=== PATIENT | female | born 1985 | race Caucasian/White ===

== ENCOUNTER 2018-01-04 10:22 | Outpatient (CLI) | payer BC, OTHER ==
[~2018-01-04] VITALS: Ht 157.5 cm; Wt 70.8 kg
[~2018-01-04 10:22] MED LIST: DCS100C PO; DOCU100C37 PO; HYDR-3720 PO; HYDR-89 PO; IBP800T PO; IBUP-1780 PO; MULT-963 PO; OCP; ONDA4TAB11 PO; TRAM-42 PO
[2018-01-04] MEDS ORDERED: MONT10TA24 PO (10:36)
[2018-01-04] MEDS ORDERED: ALOS0.5T2 PO (10:36)
[2018-01-04] MEDS ORDERED: CETI10TA20 PO (10:36)
[2018-01-04] MEDS ORDERED: BCP PO (10:36)
[2018-01-04 10:39] VITALS: BP 141/91
[2018-01-04 11:05] LABS: BASOPHILS % (AUTO) 0 % (0-10); EOSINOPHILS # (AUTO) 0.1 10^3/uL (0.0-0.3); EOSINOPHILS % (AUTO) 1 % (0-10); HEMATOCRIT 40 % (35-52); HEMOGLOBIN 13.6 G/DL (11.5-16.0); LYMPHOCYTES # (AUTO) 1.6 X 10^3 (1.0-4.0); LYMPHOCYTES % (AUTO) 20 % (12-44); MEAN CORPUSCULAR HEMOGLOBIN 29 PG (25-34); MEAN CORPUSCULAR HGB CONC 34 G/DL (32-36); MEAN CORPUSCULAR VOLUME 85 FL (80-99); MEAN PLATELET VOLUME 11.4 FL (7.4-10.4); MONOCYTES # (AUTO) 0.4 X 10^3 (0.0-1.0); MONOCYTES % (AUTO) 5 % (0-12); NEUTROPHILS # (AUTO) 5.7 X 10^3 (1.8-7.8); NEUTROPHILS % (AUTO) 73 % (42-75); PLATELET COUNT 293 10^3/uL (130-400); RED BLOOD COUNT 4.72 10^6/uL (4.35-5.85); RED CELL DISTRIBUTION WIDTH 13.5 % (10.0-14.5); WHITE BLOOD COUNT 7.7 10^3/uL (4.3-11.0)
[2018-01-05] MEDS ORDERED: IBUP-1780 PO (12:16)
[2018-01-05] MEDS ORDERED: OXYC-471 PO (12:16)
[2018-01-05] MEDS ORDERED: DOCU100C37 PO (12:16)
[2018-01-06] MEDS ORDERED: ALPR0.254 PO (07:05)
[2018-01-06] MEDS ORDERED: BO30SU PR (07:05)
== END 2018-01-04 10:55 | disposition home or self-care (01) ==
LOC: PREOP 10:22
PROVIDERS: ATTEND Obstetrics & Gynecology
DX: Z01.812 Encounter for preprocedural laboratory examination (principal); Z11.2 Encounter for screening for other bacterial diseases; N92.0 Excessive and frequent menstruation with regular cycle; D64.9 Anemia, unspecified
CPT/HCPCS: 36415; 84703; 85025; 87081

== ENCOUNTER 2019-01-03 20:46 | Emergency (ER) | payer OTHER ==
[~2019-01-03] VITALS: Ht 157.5 cm; Wt 70.3 kg
[~2019-01-03 20:46] MED LIST changes: +ALOS0.5T2 PO; +ALPR0.254 PO; +BCP PO; +BO30SU PR; +CETI10TA20 PO; +MONT10TA24 PO; +OXYC-471 PO
[2019-01-03 21:12] LABS: BASOPHILS % (AUTO) 0 % (0-10); EOSINOPHILS # (AUTO) 0.1 10^3/uL (0.0-0.3); EOSINOPHILS % (AUTO) 2 % (0-10); HEMATOCRIT 41 % (35-52); LYMPHOCYTES # (AUTO) 2.1 X 10^3 (1.0-4.0); LYMPHOCYTES % (AUTO) 29 % (12-44); MEAN CORPUSCULAR HEMOGLOBIN 29 PG (25-34); MEAN CORPUSCULAR HGB CONC 34 G/DL (32-36); MEAN CORPUSCULAR VOLUME 84 FL (80-99); MEAN PLATELET VOLUME 11.2 FL (7.4-10.4); MONOCYTES # (AUTO) 0.7 X 10^3 (0.0-1.0); MONOCYTES % (AUTO) 9 % (0-12); NEUTROPHILS # (AUTO) 4.5 X 10^3 (1.8-7.8); NEUTROPHILS % (AUTO) 61 % (42-75); PLATELET COUNT 302 10^3/uL (130-400); RED CELL DISTRIBUTION WIDTH 12.8 % (10.0-14.5); WHITE BLOOD COUNT 7.4 10^3/uL (4.3-11.0)
--- NOTE | 2019-01-03 21:12 | ED Chest Pain ---
General Chief Complaint: Chest Pain Stated Complaint: CP Source: patient Exam Limitations: no limitations History of Present Illness Date Seen by Provider: Jan 03, 2019 Time Seen by Provider: 21:10 Initial Comments Burning sensation in her mid upper chest that feels kind of like heartburn but is also described as a pressure. Throughout the day it has migrated and now has moved a bit to the left upper abdomen underneath her rib cage. This began this morning when she awakened she felt nauseous, abdominal cramping (has a history of irritable bowel syndrome and takes medication for that), palpitations and anxiety. Those symptoms have persisted off and on throughout the day. She denies any shortness of breath but has had a slight cough. Timing/Duration: changing over time Severity/Quality: moderate Location: central Radiation: no radiation Activities at Onset: none ASA po POOL INSTALLER: No NTG SL POOL INSTALLER: No Associated Symptoms: headache, nausea/vomiting Allergies and Home Medications Allergies Coded Allergies: adhesive tape (Verified Allergy, Unknown, RASH, 01/04/18) albuterol (Verified Allergy, Unknown, SHAKEY, MAKES MY SKIN CRAWL, 01/04/18) azithromycin (Verified Allergy, Unknown, GI UPSET, 01/04/18) promethazine (Unverified Allergy, Unknown, 09/17/10) Home Medications Alosetron HCl 0.5 Mg Tablet, 0.5 MG PO BID, (Reported) Alprazolam 0.25 Mg Tablet, 0.25 MG PO Q8H PRN for CRAMPS Prescribed by: GASPER COPELAND on 01/06/18 0705 Belladonna Alkaloids/Opium 30 Mg Supp, 30 MG W[place] Q12H PRN for bladder spasm Prescribed by: GASPER COPELAND on 01/06/18 0705 Cetirizine HCl 10 Mg Tablet, 10 MG PO DAILY, (Reported) Docusate Sodium 100 Mg Capsule, 100 MG PO BID Prescribed by: GASPER COPELAND on 01/05/18 1216 Ibuprofen 800 Mg Tablet, 800 MG PO Q6HR Prescribed by: GASPER COPELAND on 01/05/18 1216 Montelukast Sodium 10 Mg Tablet, 10 MG PO HS, (Reported) Oxycodone HCl/Acetaminophen 1 Each Tablet, 1-2 TAB PO Q4H PRN for PAIN-MODERATE Prescribed by: GASPER COPELAND on 01/05/18 1216 Potassium Chloride 20 Meq Tablet.er, 40 MEQ PO DAILY Prescribed by: SAL MUNOZ on 01/03/19 2141 Patient Home Medication List Home Medication List Reviewed: Yes Review of Systems Review of Systems Constitutional: see HPI EENTM: No Symptoms Reported Respiratory: See HPI, Cough Cardiovascular: No Symptoms Reported Gastrointestinal: See HPI, Diarrhea (loose stools from IBS), Nausea, Vomiting Genitourinary: No Symptoms Reported Musculoskeletal: no symptoms reported Skin: no symptoms reported Psychiatric/Neurological: No Symptoms Reported Past Vmuvbsm-Oaukdp-Brogrd Hx Patient Social History Alcohol Beverage of Choice: Beer Recent Foreign Travel: No Contact w/Someone Who Travel: No Recent Hopitalizations: No Immunizations Up To Date Tetanus Booster (TDap): Less than 5yrs PED Vaccines UTD: Yes Seasonal Allergies Seasonal Allergies: Yes Past Medical History Surgeries: Yes (colonoscopy & wisdom teeth removed in 2007, breast bx @ 16 yrs. old, ) Respiratory: No (exercised induced asthma with younger) Cardiac: No Neurological: No Reproductive Disorders: No Genitourinary: No Gastrointestinal: Yes Irritable Bowel Musculoskeletal: No Endocrine: No HEENT: No Cancer: No Psychosocial: No Integumentary: No Blood Disorders: No Adverse Reaction/Blood Tranf: No Family Medical History Hypercholesterolemia G8 BROTHER, Onset:30's - 40 Hypertension 19 MOTHER, Onset:40's - 50 Prostate cancer 19 FATHER, Onset:50's - 60 Physical Exam Vital Signs Capillary Refill : Height, Weight, BMI Height: 5'2.00" Weight: 156lbs. 0.0oz. 70.009183th; 28.5 BMI Method:Stated General Appearance: No Apparent Distress, WD/WN HEENT: PERRL/EOMI, TMs Normal Neck: Full Range of Motion, Normal Inspection Respiratory: Normal Breath Sounds, No Accessory Muscle Use, No Respiratory Distress Cardiovascular: Normal Peripheral Pulses, Tachycardia (Upper limits of normal at about 100 105) Gastrointestinal: Normal Bowel Sounds, Non Tender, Soft Extremity: Normal Capillary Refill, Normal Inspection Neurologic/Psychiatric: Alert, Oriented x3 Skin: Normal Color, Warm/Dry Progress/Results/Core Measures Results/Orders Lab Results Laboratory Tests Test 01/03/19 21:00 Range/Units White Blood Count 7.4 4.3-11.0 10^3/uL Red Blood Count 4.88 4.35-5.85 10^6/uL Hemoglobin 14.0 11.5-16.0 G/DL Hematocrit 41 35-52 % Mean Corpuscular Volume 84 80-99 FL Mean Corpuscular Hemoglobin 29 25-34 PG Mean Corpuscular Hemoglobin Concent 34 32-36 G/DL Red Cell Distribution Width 12.8 10.0-14.5 % Platelet Count 302 130-400 10^3/uL Mean Platelet Volume 11.2 H 7.4-10.4 FL Neutrophils (%) (Auto) 61 42-75 % Lymphocytes (%) (Auto) 29 12-44 % Monocytes (%) (Auto) 9 0-12 % Eosinophils (%) (Auto) 2 0-10 % Basophils (%) (Auto) 0 0-10 % Neutrophils # (Auto) 4.5 1.8-7.8 X 10^3 Lymphocytes # (Auto) 2.1 1.0-4.0 X 10^3 Monocytes # (Auto) 0.7 0.0-1.0 X 10^3 Eosinophils # (Auto) 0.1 0.0-0.3 10^3/uL Basophils # (Auto) 0.0 0.0-0.1 10^3/uL Prothrombin Time 11.6 L 12.2-14.7 SEC INR Comment 0.8 0.8-1.4 Activated Partial Thromboplast Time 30 24-35 SEC D-Dimer 0.34 0.00-0.49 UG/ML Sodium Level 137 135-145 MMOL/L Potassium Level 3.1 L 3.6-5.0 MMOL/L Chloride Level 104 98-107 MMOL/L Carbon Dioxide Level 22 21-32 MMOL/L Anion Gap 11 5-14 MMOL/L Blood Urea Nitrogen 11 7-18 MG/DL Creatinine 0.83 0.60-1.30 MG/DL Estimat Glomerular Filtration Rate > 60 BUN/Creatinine Ratio 13 Glucose Level 114 H 70-105 MG/DL Calcium Level 9.2 8.5-10.1 MG/DL Corrected Calcium 9.0 8.5-10.1 MG/DL Magnesium Level 2.2 1.8-2.4 MG/DL Total Bilirubin 0.2 0.1-1.0 MG/DL Aspartate Amino Transf (AST/SGOT) 18 5-34 U/L Alanine Aminotransferase (ALT/SGPT) 12 0-55 U/L Alkaline Phosphatase 85 40-136 U/L Myoglobin 19.6 10.0-92.0 NG/ML Troponin I < 0.028 <0.028 NG/ML Total Protein 7.4 6.4-8.2 GM/DL Albumin 4.3 3.2-4.5 GM/DL My Orders Orders - SAL MUNOZ APRN Cbc With Automated Diff (01/03/19 20:51) Magnesium (01/03/19 20:51) Chest 1 View, Ap/Pa Only (01/03/19 20:51) Ekg Tracing (01/03/19 20:51) Cardiac Profile 1 (01/03/19 20:51) Comprehensive Metabolic Panel (01/03/19 20:51) Myoglobin Serum (01/03/19 20:51) Protime With Inr (01/03/19 20:51) Partial Thromboplastin Time (01/03/19 20:51) O2 (01/03/19 20:51) Monitor-Rhythm Ecg Trace Only (01/03/19 20:51) Lipid Panel (01/04/19 06:00) Ed Iv/Invasive Line Start (01/03/19 20:51) Fibrin Degradation Products (01/03/19 20:51) Antacid Suspension (Mylanta Suspension (01/03/19 21:15) Lidocaine 2% Viscous 15 Ml (Xylocaine Vi (01/03/19 21:15) Lactated Ringers (Lr 1000 Ml Iv Solution (01/03/19 21:15) Lorazepam Injection (Ativan Injection) (01/03/19 21:15) Ondansetron Injection (Zofran Injectio (01/03/19 21:30) Potassium Chloride Powder (Klor Con 20 M (01/03/19 21:45) Medications Given in ED Current Medications Medications Dose Ordered Sig/Sai Route Start Time Stop Time Status Last Admin Dose Admin Al Hydrox/Mg Hydrox/Simethicone 30 ml ONCE ONCE PO 01/03/19 21:15 01/03/19 21:16 DC 01/03/19 21:18 30 ML Lidocaine HCl 10 ml ONCE ONCE PO 01/03/19 21:15 01/03/19 21:16 DC 01/03/19 21:18 10 ML Lorazepam 0.5 mg ONCE PRN IVP 01/03/19 21:15 01/03/19 21:18 0.5 MG Ondansetron HCl 4 mg ONCE ONCE IVP 01/03/19 21:30 01/03/19 21:31 DC 01/03/19 21:35 4 MG Departure Impression Primary Impression: Hypokalemia Disposition: 01 HOME, SELF-CARE Condition: Stable Departure-Patient Inst. Decision time for Depature: 21:39 Referrals: AZALIA PIKE DO (PCP/Family) Primary Care Physician Patient Instructions: Hypokalemia Add. Discharge Instructions: 1. Return to ER for any concerns. 2. Take the potassium Supplement as directed for the next [address] Pike tomorrow to make an appointment for recheck. All discharge instructions reviewed with patient and/or family. Voiced understanding. Scripts Ondansetron (Ondansetron Odt) 4 Mg Tab.rapdis 4 MG PO Q4H PRN for NAUSEA/VOMITING, #10 TAB Prov: SAL MUNOZ APRN 01/03/19 Potassium Chloride (Potassium Chloride) 20 Meq Tablet.er 40 MEQ PO DAILY, #4 TAB Prov: SAL MUNOZ APRN 01/03/19 Copy Copies To 1: AZALIA PIKE PETER J APRN Jan 03, 2019 21:12
[2019-01-03] MEDS ORDERED: LORazepam INJ 2 MG/ML (ATIVAN) VIAL IVP PRN (21:15)
[2019-01-03] MEDS ORDERED: LIDOCAINE 2% VISCOUS 15 ML UDC PO ONE (21:15)
[2019-01-03] MEDS ORDERED: LACTATED RINGERS 1,000 ML IV SCH (21:15)
[2019-01-03] MEDS ORDERED: ANTACID SUSP 30 ML UDC (MYLANTA) PO ONE (21:15)
[2019-01-03 21:22] LABS: INR 0.8 (0.8-1.4); PROTHROMBIN TIME PATIENT 11.6 SEC (12.2-14.7)
[2019-01-03 21:30] LABS: ALANINE AMINOTRANSFERASE 12 U/L (0-55); ALBUMIN 4.3 GM/DL (3.2-4.5); ALKALINE PHOSPHATASE 85 U/L (40-136); BILIRUBIN,TOTAL 0.2 MG/DL (0.1-1.0); BUN/CREATININE RATIO 13; CALCIUM 9.2 MG/DL (8.5-10.1); CARBON DIOXIDE 22 MMOL/L (21-32); CHLORIDE 104 MMOL/L (98-107); CREATININE SERUM 0.83 MG/DL (0.60-1.30); GFR ESTIMATED > 60; GLUCOSE 114 MG/DL (70-105); MAGNESIUM 2.2 MG/DL (1.8-2.4); POTASSIUM 3.1 MMOL/L (3.6-5.0); SODIUM 137 MMOL/L (135-145); TOTAL PROTEIN 7.4 GM/DL (6.4-8.2)
[2019-01-03] MEDS ORDERED: ONDANSETRON 4 MG/2 ML (SDV) Z0FRAN IVP ONE (21:30)
--- NOTE | 2019-01-03 21:37 | Diagnostic Imaging Report ---
INDICATION: Nausea and vomiting. Palpitations. FINDINGS: Portable chest. Lungs are well-aerated and clear. Heart is not enlarged. There is no pulmonary edema. No pneumothorax or pleural effusion. IMPRESSION: Negative portable chest. Dictated by: Dictated on workstation # [id number]
[2019-01-03] MEDS ORDERED: POTA-51 PO ×2 (21:41→22:14)
[2019-01-03] MEDS ORDERED: KCL 20 MEQ POWDER FOR ORAL SOLUTION PO ONE (21:45)
[2019-01-03] MEDS ORDERED: ONDA4TAB11 PO ×2 (21:48→22:14)
[2019-01-03 22:04] VITALS: BP 125/92
== END 2019-01-03 22:46 | disposition home or self-care (01) ==
LOC: EDUNIT# 20:46 → ER 20:47
DX: E87.6 Hypokalemia (principal); R07.89 Other chest pain; K58.9 Irritable bowel syndrome, unspecified; Z82.49 Family history of ischemic heart disease and other diseases of the circulatory system; Z91.048 Other nonmedicinal substance allergy status; Z88.1 Allergy status to other antibiotic agents; Z88.8 Allergy status to other drugs, medicaments and biological substances; Z98.890 Other specified postprocedural states
CPT/HCPCS: 36415; 71045; 80053; 83735; 83874; 84484; 85025; 85379; 85610; 85730; 93005; 93041; 96361; 96374; 96375

== ENCOUNTER → 2019-11-09 | Outpatient (CLI) | payer OTHER ==
[~2019-11-09] MED LIST changes: -CETI10TA20 PO; +CETI10TA21 PO; +HYDR25TA4 PO; -MONT10TA24 PO; +MONT10TA26 PO; +POTA-51 PO; +POTA8CAP20 PO
--- NOTE | 2019-11-09 17:00 | Diagnostic Imaging Report ---
PROCEDURE: CT urinary tract, rule out kidney stone. TECHNIQUE: Multiple contiguous axial images were obtained through the abdomen and pelvis without the use of intravenous contrast. Auto Exposure Controls were utilized during the CT exam to meet ALARA standards for radiation dose reduction. INDICATION: Pelvic pain and right lower quadrant pain. Hematuria. COMPARISON: CT examination from January 05, 2018. FINDINGS: Lung bases are clear without infiltrate or effusion. Liver demonstrates no evidence of a focal intrahepatic abnormality. Gallbladder nondistended without radiodense gallstones or findings of biliary dilatation. Pancreas is unremarkable. The spleen is normal in size. There is no adrenal mass. The kidneys appear nonobstructed. There are no findings of urolithiasis. A small fat density focus within the upper pole of the right kidney likely reflects an angiomyolipoma. This is unchanged from prior exam. There is no stone within the ureters or within the urinary bladder. There are no findings of bowel obstruction. There is no abnormal bowel thickening. There are sutures in the right lower quadrant suggesting previous appendectomy. In the right pelvis is a rounded structure that contains a fluid/fluid level. This measures 6.2 x 5.3 cm and most likely reflects a large hemorrhagic ovarian cyst. There is also moderate free fluid within the pelvis. The urinary bladder is nondistended. Patient appears to be status post hysterectomy. IMPRESSION: 1. 6.2 x 5.3 cm rounded structure containing a fluid fluid level with dense contents posteriorly. This is most likely reflective of a large hemorrhagic ovarian cyst. Further assessment with ultrasound could be considered. If clinically appropriate, ultrasound may be useful to exclude the possibility of torsion given patient's reported intense pelvic pain. 2. Moderate free fluid within the pelvis. 3. Previous hysterectomy. 4. No findings of urolithiasis or hydronephrosis. 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 5. No bowel obstruction. Patient appears to be status post prior appendectomy. Dictated by: Dictated on workstation # [id number]
== END ==
LOC: RAD 16:01
PROVIDERS: ATTEND Nurse Practitioner Family
DX: R93.5 Abnormal findings on diagnostic imaging of other abdominal regions, including retroperitoneum (principal); D17.5 Benign lipomatous neoplasm of intra-abdominal organs; I10 Essential (primary) hypertension; K58.9 Irritable bowel syndrome, unspecified; J45.909 Unspecified asthma, uncomplicated
CPT/HCPCS: 74176

== ENCOUNTER 2019-11-12 14:20 | Outpatient (CLI) | payer OTHER ==
[~2019-11-12] VITALS: Ht 157 cm; Wt 70.9 kg
[~2019-11-12 14:20] MED LIST changes: -HYDR25TA4 PO; -POTA8CAP20 PO
[2019-11-12] MEDS ORDERED: POTA8CAP20 PO (14:28)
[2019-11-12] MEDS ORDERED: MONT10TA26 PO (14:28)
[2019-11-12] MEDS ORDERED: ALOS0.5T2 PO (14:28)
[2019-11-12] MEDS ORDERED: CETI10TA21 PO (14:28)
[2019-11-12] MEDS ORDERED: HYDR25TA4 PO (14:28)
[2019-11-13] MEDS ORDERED: OXYC1TAB87 PO ×2 (07:27→08:45)
[2019-11-13] MEDS ORDERED: IBUP-1780 PO ×2 (07:27→08:45)
[2019-11-13] MEDS ORDERED: NORG1TAB14 PO (08:45)
== END 2019-11-12 14:48 ==
LOC: PREOP 14:20
PROVIDERS: ATTEND Obstetrics & Gynecology
DX: Z01.818 Encounter for other preprocedural examination (principal)

== ENCOUNTER 2019-11-13 06:33 | Day surgery (SDC) | payer OTHER ==
[~2019-11-13] VITALS: Ht 157 cm; Wt 70.9 kg
[2019-11-13] VITALS (11 sets, daily range): BP systolic 99–122; BP diastolic 50–78
[~2019-11-13 06:33] MED LIST changes: +HYDR25TA4 PO; +POTA8CAP20 PO
[2019-11-13] MEDS ORDERED: BUP/EPI 0.5% 1:200,000 (SENSORCAINE) 30 ML VIAL ONE (06:34)
[2019-11-13] MEDS ORDERED: FAMOTIDINE 20MG/2ML IV (PEPCID) IV ONE (06:45)
[2019-11-13] MEDS ORDERED: ceFAZolin INJECTION 1,000 MG in WATER (STERILE) FOR INJECTION 10 ML IV ONE (06:45)
[2019-11-13] MEDS ORDERED: ONDANSETRON 4 MG/2 ML (SDV) Z0FRAN IV ONE (06:45)
[2019-11-13] MEDS ORDERED: SCOPOLAMINE 1.5 MG (TRANSDERM-SCOP) PATCH TOP ONE (06:45)
[2019-11-13] MEDS ORDERED: SCOPOLAMINE 1.5 MG (TRANSDERM-SCOP) PATCH ONE (06:52)
[2019-11-13] MEDS ORDERED: FAMOTIDINE 20MG/2ML IV (PEPCID) ONE (06:52)
[2019-11-13] MEDS ORDERED: fentaNYL INJECTION 100 MCG/2 ML AMP ONE ×2 (06:52→06:59)
[2019-11-13] MEDS ORDERED: ONDANSETRON 4 MG/2 ML (SDV) Z0FRAN ONE ×2 (06:52→06:58)
[2019-11-13] MEDS ORDERED: proPOfol 200 MG/20 ML (DIPRIVAN) VIAL IV ONE (06:58)
[2019-11-13] MEDS ORDERED: LIDOCAINE PF 2% 5 ML (XYLOCAINE) VIAL ONE (06:58)
[2019-11-13] MEDS ORDERED: SUCCINYLCHOLINE INJ 100 MG/5 ML SYR ONE (06:58)
[2019-11-13] MEDS ORDERED: ROCURONIUM 10 MG/ML 5 ML SYRINGE IV ONE (06:58)
[2019-11-13] MEDS ORDERED: MIDAZOLAM 2 MG/2 ML (VERSED) VIAL ONE (06:59)
[2019-11-13] MEDS ORDERED: fentaNYL INJECTION 100 MCG/2 ML AMP IV ONE (07:00)
[2019-11-13] MEDS: LACTATED RINGERS 1,000 ML IV PRN ×2 (07:08→07:50)
[2019-11-13] MEDS ORDERED: D5 LR IV SOLUTION 1,000 ML IV SCH (07:17)
--- NOTE | 2019-11-13 07:21 | Discharge Inst-Surgical ---
Discharge Inst-Surgical Depart Medication/Instructions New, Converted or Re-Newed RX: RX on Chart Consults/Follow Up Patient Instructions: as directed Orders & Referrals Follow Up Appt: Call to make follow up appt. for patient in 1 weeks. Activity: Rest for 24 hours, than as tolerated. Wound Care: May remove Band-Aid tomorrow. Replace as desired. Keep incisions clean and dry. Wash daily with soap and water. Please call in RX to patient pharmacy. Diet: As tolerated-Clear Liquids only if nauseated. Tomorrow, may shower or tub bathe as desired. No driving for 24 hours, no alcoholic beverages for 24 hours, and nothing per vagina (no tampons, douching, or intercoarse) for 2 weeks. Patient to return to the clinic as soon as possible for: Temperature greater than 101F, Severe Pain, Foul discharge from incision or vagina, Excessive Bleeding (more than a period). Activity Activity as Tolerated: Yes Diet Discharge Diet: No Restrictions GASPER BRYAN MD Nov 13, 2019 07:21
--- NOTE | 2019-11-13 07:22 | Progress Note-Post Operative ---
Post-Operative Progess Note Surgeon (s)/Penal Officer (s) Surgeon GASPER BRYAN MD Penal Officer: Rebekah Dash Pre-Operative Diagnosis complex right ovarian cystic masses Post-Operative Diagnosis same with torsed comlpex right ovary Procedure & Operative Findings Date of Procedure 11/13/19 Procedure Performed/Findings R oophorectomy via LS Anesthesia Type geta Estimated Blood Loss Estimated blood loss (mL): min Specimens/Packing Specimens Removed R ovary/complex cystic mass GASPER BRYAN MD Nov 13, 2019 07:22
--- NOTE | 2019-11-13 07:22 | Progress Note-Pre Operative ---
Pre-Operative Progress Note H&P Reviewed The H&P was reviewed, patient examined and no changes noted. Date Seen by Provider: Nov 13, 2019 Time Seen by Provider: 07:21 Date H&P Reviewed: Nov 13, 2019 Time H&P Reviewed: 07:21 Pre-Operative Diagnosis: complex right ovarian cystic masses GASPER BRYAN MD Nov 13, 2019 07:22
[2019-11-13] MEDS ORDERED: IBUP-1780 PO ×2 (07:27→08:45)
[2019-11-13] MEDS ORDERED: OXYC1TAB87 PO ×2 (07:27→08:45)
[2019-11-13] MEDS ORDERED: KETOROLAC 30 MG/ML VIAL IVP ONE (07:30)
[2019-11-13] MEDS ORDERED: oxyCODONE/APAP 5/325MG (PERCOCET 5) TABLET PO PRN (07:30)
[2019-11-13] MEDS ORDERED: ONDANSETRON 4 MG/2 ML (SDV) Z0FRAN IVP PRN ×2 (07:30→08:45)
[2019-11-13] MEDS ORDERED: MEPERIDINE (DEMEROL) INJ 100 MG/ML IM ONE (07:30)
[2019-11-13 07:38] LABS: BASOPHILS % (AUTO) 0 % (0-10); EOSINOPHILS # (AUTO) 0.1 10^3/uL (0.0-0.3); EOSINOPHILS % (AUTO) 1 % (0-10); HEMATOCRIT 37 % (35-52); HEMOGLOBIN 11.9 G/DL (11.5-16.0); LYMPHOCYTES # (AUTO) 1.2 X 10^3 (1.0-4.0); LYMPHOCYTES % (AUTO) 14 % (12-44); MEAN CORPUSCULAR HEMOGLOBIN 29 PG (25-34); MEAN CORPUSCULAR HGB CONC 33 G/DL (32-36); MEAN CORPUSCULAR VOLUME 88 FL (80-99); MEAN PLATELET VOLUME 11.2 FL (7.4-10.4); MONOCYTES # (AUTO) 0.6 X 10^3 (0.0-1.0); MONOCYTES % (AUTO) 7 % (0-12); NEUTROPHILS # (AUTO) 6.8 X 10^3 (1.8-7.8); NEUTROPHILS % (AUTO) 78 % (42-75); PLATELET COUNT 198 10^3/uL (130-400); WHITE BLOOD COUNT 8.7 10^3/uL (4.3-11.0)
[2019-11-13 07:48] LABS: POTASSIUM 3.7 MMOL/L (3.6-5.0)
[2019-11-13 07:49] LABS: CALCIUM 8.6 MG/DL (8.5-10.1)
[2019-11-13 07:53] LABS: CREATININE SERUM 1.19 MG/DL (0.60-1.30)
[2019-11-13] MEDS ORDERED: GLYCOPYRROLATE 0.2 MG/ML (ROBINUL) 2 ML VIAL ONE (08:24)
[2019-11-13] MEDS ORDERED: NEOSTIGMINE 3 MG/3 ML VIAL ONE (08:24)
[2019-11-13] MEDS ORDERED: HYDROmorphone 2 MG/ML VIAL (DILAUDID) ONE (08:44)
[2019-11-13] MEDS ORDERED: MEPERIDINE (DEMEROL) INJ 50 MG/ML IVP ONE (08:45)
[2019-11-13] MEDS ORDERED: morphine INJ 10 MG/ML 1ML (SYR OR VIAL) IVP ONE (08:45)
[2019-11-13] MEDS ORDERED: NORG1TAB14 PO (08:45)
[2019-11-13] MEDS ORDERED: HYDROmorphone 2 MG/ML VIAL (DILAUDID) IV ONE (08:45)
[2019-11-13] MEDS ORDERED: SEVOFLURANE (ULTANE) 15 ML INHAL SOLN ONE (08:52)
--- NOTE | 2019-11-13 08:55 | OPERATIVE REPORT ---
DATE OF SERVICE: 11/13/2019 PREOPERATIVE DIAGNOSES: Complex right ovarian cystic mass and severe abdominal pelvic pain. POSTOPERATIVE DIAGNOSES: 1. Complex right ovarian cystic mass and severe abdominal pelvic pain 2. Torsed right hemorrhagic corpus luteal ovarian cyst with torsed ovary. OPERATIVE PROCEDURE: Laparoscopic right oophorectomy. OPERATIVE DESCRIPTION: With the patient in supine position under satisfactory general anesthesia, she was repositioned in a dorsal lithotomy position in the [facility] and prepped and draped in the usual fashion for abdominal and vaginal surgery. The patient had voided prior to coming to the OR. A moist Kerlix gauze was used to fill the vagina and distend the upper vagina for localization internally. A 5 mm incision was then made in the patient's left upper quadrant. Veress needle was placed through that incision into abdominal cavity and correct placement was confirmed with water drop test. The abdomen was insufflated with 2.4 liters of carbon dioxide. The Veress needle was removed and a 5 mm Optiview view laparoscopic port was placed. The patient placed in a Trendelenburg allowing the bowel to spill mostly above the pelvis. There was a large mass hemorrhagic appearing filling the pelvis. The gallbladder appeared normal. The abdominal wall was transilluminated. A 12 mm port was placed through an incision of that size in the inferior margin of the umbilicus and a 5 mm port superior to the symphysis pubis. All three port sites were infiltrated with 0.25% Marcaine with epinephrine prior to incision and port placement. The pelvis was examined. There were some adhesions of the sigmoid to the apex of this mass into the anterior lower abdominal wall just above the symphysis pubis. This was taken free. There was a filmy sort of fibrinous adhesion. It was there was a hemorrhagic cyst involving the bulk of the ovary. The ovary was torsed over 360 degrees on its pedicle and onto the round ligament, which was attached to the ovary at the time of her hysterectomy. The entire ovary and the entire mass was cyanotic. There was no evidence of blood flow in or about the ovarian tissue. The tissue had a rosado like appearance. Decision was made to remove the complex mass involving the entire right ovary rather than risk untorsing and potentially fraying a thrombus. The Endo GI was then placed across the pedicle close to the right pelvic sidewall. When the instrument was fired, it severed the mass from its attachment. The mass was placed in an Endobag and then brought out through the umbilical incision. The umbilical incision was extended to approximately 2 cm to allow for removal of the mass within the Endobag. With the mass removed, the abdomen was reinsufflated. The pelvis was examined and irrigated. There was a small amount of blood remaining from the hemorrhagic cyst. This was evacuated out. There was no bleeding. The pedicle on the right was hemostatic. There was no remaining abnormal pathology. The laparoscopic portion of the procedure at this point was halted. The operative instruments were removed under direct vision as were the ports. The abdomen was evacuated of the insufflating gas in the process removing the ports. The umbilical fascia was closed with a running suture of 2-0 Vicryl reapproximating the fascia and then the skin incisions were closed with interrupted sutures of 3-0 nylon. The Kerlix gauze were removed from the vagina. Sponge and needle counts were correct. Estimated blood loss was minimal. The entire complex mass was sent to pathology for permanent section. The patient was now uneventfully awakened from her general anesthesia and transferred to the recovery room in stable condition with plans for discharge home PAR. Job ID: [id number] DocumentID: [id number] Dictated Date: 11/13/2019 08:30:55 Express Manager Date: 11/13/2019 08:54:59 Dictated By: GASPER BRYAN MD
--- NOTE | 2019-11-13 09:36 | Anesthesia-General Post-Op ---
General Patient Condition Mental Status/LOC: Same as Preop Cardiovascular: Satisfactory Nausea/Vomiting: Absent Respiratory: Satisfactory Pain: Controlled Complications: Absent Post Op Complications Complications None Follow Up Care/Instructions Patient Instructions None needed. Anesthesia/Patient Condition Patient Condition Patient is doing well, no complaints, stable vital signs, no apparent adverse anesthesia problems. No complications reported per nursing. ZOLTAN BROOKE CRNA Nov 13, 2019 09:36
--- NOTE | 2019-11-13 11:40 | NUR ---
CALLED DR. BRYAN, PATIENT IS WANTING ORAL ZOFRAN TO HAVE FOR NAUSEA AND VOMITING.
== END 2019-11-13 12:00 | disposition home or self-care (01) ==
LOC: SDC 06:33
PROVIDERS: ATTEND Obstetrics & Gynecology
DX: N83.11 Corpus luteum cyst of right ovary (principal); N83.511 Torsion of right ovary and ovarian pedicle; I10 Essential (primary) hypertension; J45.909 Unspecified asthma, uncomplicated; Z79.899 Other long term (current) drug therapy
CPT/HCPCS: 36415; 80048; 85025; 87081

== ENCOUNTER → 2022-05-13 | Outpatient (CLI) | payer OTHER ==
[~2022-05-13] MED LIST changes: +ALPR.25T PO; -ALPR0.254 PO; -CETI10TA21 PO; +CETI10TA49 PO; +MONT-40 PO; -MONT10TA26 PO; +NORG1TAB14 PO; -OXYC-471 PO; +OXYC1TAB11 PO; +OXYC1TAB87 PO
--- NOTE | 2022-05-16 09:57 | Diagnostic Imaging Report ---
INDICATION: Routine screening. COMPARISON: No prior mammograms are available for comparison. This is a baseline study. TECHNIQUE: 2D and 3D bilateral screening mammography was performed with CAD. FINDINGS: Scattered fibroglandular densities are identified bilaterally. Benign intraparenchymal lymph nodes in the outer aspect of the right breast are noted. No spiculated mass or malignant-appearing microcalcifications are seen. The axillae are unremarkable. IMPRESSION: No mammographic features suspicious for malignancy are identified. ACR BI-RADS Category 2: Benign findings. Result letter will be mailed to the patient. Note: At least 10% of breast cancer is not imaged by mammography. Dictated by: Dictated on workstation # [id number]
== END ==
LOC: RAD 14:29
PROVIDERS: ATTEND Family Medicine
DX: Z12.31 Encounter for screening mammogram for malignant neoplasm of breast (principal)
CPT/HCPCS: 77063; 77067

== ENCOUNTER → 2023-05-22 | Outpatient (CLI) | payer OTHER ==
[~2023-05-22] MED LIST changes: +POTA-330 PO; -POTA-51 PO
--- NOTE | 2023-05-22 19:01 | Diagnostic Imaging Report ---
Indication: Routine screening. Comparison is made with prior mammogram from 05/13/2022. 2-D and 3-D bilateral screening mammography was performed with CAD. Scattered fibroglandular densities are identified bilaterally. Benign nodules upper outer right breast are stable. No new mass or malignant-appearing microcalcifications are seen. There are benign calcifications in the right breast. Axillae are unremarkable. IMPRESSION: BI-RADS Category 2 No mammographic features suspicious for malignancy are identified. ACR BI-RADS Category 2: Benign findings. Result letter will be mailed to the patient. Note: At least 10% of breast cancer is not imaged by mammography. Dictated by: Dictated on workstation # [id number]
== END ==
LOC: RAD 15:31
PROVIDERS: ATTEND Family Medicine
DX: Z12.31 Encounter for screening mammogram for malignant neoplasm of breast (principal)
CPT/HCPCS: 77063; 77067